=== PATIENT | male | born 1945 | race Caucasian/White ===

== ENCOUNTER → 2019-12-13 | Outpatient (CLI) | payer OTHER ==
[~2019-12-13] MED LIST: ASPIRIN325 PO; CARVEDILOL6.25 MG PO; CLARITIN10 MG PO; COLACE100 MG PO; COREG PO; DOXYCYCLINE 10100 M2 PO; GLYBURIDE 2.52.5 M1 PO; LASIX 40 MG TAB40 M2 PO; LIPITOR10 MG PO; LISINOPRIL10 MG PO; NICOTINE TRANSD21 M1 TD; PLAVIX 75 MG TA75 MG PO; POTASSIUM20 PO; PROVENTIL17 G1; PROVENTIL17 G1 INH; ZESTRIL5 MG PO
== END ==
LOC: RAD 12:12
DX: J98.4 Other disorders of lung (principal); J92.9 Pleural plaque without asbestos; R06.09 Other forms of dyspnea; R05 Cough